=== PATIENT | male | born 1975 | race Caucasian/White ===

== ENCOUNTER 2016-06-17 07:07 | Day surgery (SDC) | payer BC ==
[~2016-06-17 07:07] MED LIST: FISH OIL 1,0001 CA1 PO; MULTI-DAY VITAM1 TAB PO; PERCOCET 10/3251 TA1 PO; TESTOSTERON200 MG/ML IM; [UNRECOGNIZED DRUG - REMARK] PO
--- NOTE | 2016-06-17 08:50 | NUR ---
SPOKE WITH DR BERMAN, INFORMED HE HAD PERCOCET 10MG THIS AM. DR BERMAN STATES OK TO GIVE ALL PREOPS INCLUDING OXYCONTIN ORDERED. #20 GUAGE IV STARTED IN RIGHT ARM.
[2016-06-17 08:54] VITALS: BP 150/101; BMI 31.7
[2016-06-17] MEDS ORDERED: DILAUDID4 MG PO (14:24)
--- NOTE | 2016-06-19 10:10 | OP ---
PATIENT NAME: DELMA STOKES MEDICAL RECORD: [id number] :77 LOCATION:[facility] ADMISSION DATE: SURGEON: KELSEA TRACY MD DATE OF OPERATION: 06/17/2016 PREOPERATIVE DIAGNOSIS: Anterior cruciate ligament deficient, left knee. POSTOPERATIVE DIAGNOSES: Anterior cruciate ligament deficient, left knee plus grade II chondral fissuring of the medial femoral condyle with chondral flap. PROCEDURES: 1. Arthroscopic ACL allograft -- [id number]. 2. Medial femoral condyle chondroplasty. SURGEON: Kelsea Tracy MD ANESTHESIA: General. INTRAOPERATIVE COMPLICATIONS: None. SUMMARY OF PATHOLOGIC FINDINGS: Consistent with the preoperative MRI, the patient had a full thickness ACL tear; however, not seen on the MRI, the patient had a chondral flap to medial femoral condyle obviously traumatic in nature that required gentle debridement chondroplasty. OPERATIVE SUMMARY IN DETAIL: After obtaining the appropriate preoperative orthopedic surgery consent as well as anesthetic consultation, evaluation and clearance, the patient was brought to the operating room and placed on the operating table in supine position. After general laryngeal mask was administered, tourniquet was placed about the proximal aspect of left lower extremity. Left lower extremity was then prepped and draped in routine sterile fashion. The leg was elevated and exsanguinated, tourniquet inflated to 350 mmHg. Routine inferolateral portal was established followed by superior medial portal and inferomedial portal. Diagnostic arthroscopy did reveal the above findings. Attention was first turned to taking out the ACL stump residual both the femur and the tibia. Gentle notchplasty was performed. At this point, the chondral flap was noted and photographed intraoperatively and made a part of the patient's permanent chart. This was gently debrided back to stable chondral elements, so that there would be no further shearing. Having completed this, an 11 mm tibial tunnel was drilled to the footprint under arthroscopic visualization and then the spade tipped guidewire was used with the appropriate over the top guide to make the femoral tunnel. The spade tipped was driven through the lateral cortex of the skin and then the low profile 11-mm reamer measured approximately 40 mm deep. These bone tunnels were cleaned out and then the passing FiberWire was passed through the tunnels and this was then used to pass the prepared allograft that had been prepared with the [id number] Tight[employer]ope system from [employer]. The button was passed in the lateral canal, tightened securely and the knee was taken through multiple ranges of motion and tightened again. The distal fixation was achieved with a Biomet 38 mm fully cancellous 4.0 screw with a washer and this was tied and tensioned after further range of motion. Having completed this, the patient's Corrine was no longer positive nor was this pivot shift. The arthroscopy portals were closed with 4-0 Prolene. The tibial guide hole incision was closed with 2-0 Vicryl and 4-0 Prolene. Sterile dressings were applied. The patient was awakened, taken to recovery in stable condition. All final needle and sponge counts were correct. OPERATIVE REPORT [id number] DELMA STOKES TRANSINT:[id number] Voice Confirmation ID: [id number] DOCUMENT ID: [id number] ROSSANA POPE, KELSEA CELIS at 1010 CC: [id number] DICTATION DATE: 06/17/16 [address] [employer] COACH: 06/17/[address] [place] [address] 06/17/[address] [id number]
== END 2016-06-17 16:00 | disposition home or self-care (01) ==
LOC: D.OPS 07:07
DX: S83.512A Sprain of anterior cruciate ligament of left knee, initial encounter (principal); M94.262 Chondromalacia, left knee